=== PATIENT | female | born 1990 ===

== ENCOUNTER 2019-11-14 09:48 | Outpatient (CLI) | payer OTHER ==
[~2019-11-14] VITALS: Ht 160 cm; Wt 124.1 kg
[2019-11-14 09:59] VITALS: BP 121/56
[2019-11-14 10:52] LABS: ALANINE AMINOTRANSFERASE 38 U/L (12-78); ALBUMIN 2.6 g/dL (3.4-5.0); ANION GAP 9 mmol/L (5-15); CALCIUM 8.7 mg/dL (8.5-10.1); CHLORIDE 109 mmol/L (98-107); CREATININE 0.59 mg/dL (0.55-1.02)
[2019-11-14 10:53] LABS: ALKALINE PHOSPHATASE 113 U/L (45-117); BILIRUBIN,TOTAL 0.3 mg/dL (0.2-1.0); TOTAL PROTEIN 7.3 g/dL (6.4-8.2)
== END 2019-11-14 12:03 | disposition home or self-care (01) ==
LOC: LDOP 09:48
PROVIDERS: ATTEND Obstetrics & Gynecology
DX: Z34.83 Encounter for supervision of other normal pregnancy, third trimester (principal); Z3A.36 36 weeks gestation of pregnancy
CPT/HCPCS: 36415; 59025; 80053; 82239

== ENCOUNTER 2019-11-24 05:10 | Inpatient (IN) | payer OTHER ==
[~2019-11-24] VITALS: Ht 160 cm; Wt 121.0 kg
[2019-11-24 05:16] VITALS: BP 133/63
[2019-11-24] MEDS ORDERED: NEWBORN KIT ONE (05:22)
[2019-11-24] MEDS ORDERED: OXYTOCIN 30U/ 0.9% NaCL 500ML 500 ML ONE ×2 (05:22→09:26)
[2019-11-24] MEDS ORDERED: METOCLOPRAMIDE 5 MG/ML, 2ML ONE (05:23)
[2019-11-24] MEDS ORDERED: SODIUM CITRATE/CITRIC ACID 30 ML UDC PO ONE (05:30)
[2019-11-24] MEDS ORDERED: METOCLOPRAMIDE 5 MG/ML, 2ML IV ONE (05:30)
[2019-11-24] MEDS ORDERED: LACTATED RINGERS 1,000 ML IVBOLUS ONE (05:30)
[2019-11-24] MEDS ORDERED: LACTATED RINGERS 1,000 ML IV SCH (06:00)
[2019-11-24 06:11] LABS: BASOPHILS % (AUTO) 1 % (0-1); EOSINOPHILS % (AUTO) 2 % (1-7); LYMPHOCYTES % (AUTO) 30 % (22-44); MEAN CORPUSCULAR HEMOGLOBIN 28.1 pg (27.0-34.8); MEAN CORPUSCULAR HGB CONC 32.6 g/dL (32.4-35.8); MEAN PLATELET VOLUME 8.8 fL (7.4-10.4); MONOCYTES % (AUTO) 6 % (2-9); NEUTROPHILS % (AUTO) 62 % (42-75); PLATELET COUNT 273 x10^3/uL (130-400); RED CELL DISTRIBUTION WIDTH 15.5 % (9.6-15.2)
[2019-11-24 06:23] LABS: MD NO
[2019-11-24 06:54] LABS: ALANINE AMINOTRANSFERASE 27 U/L (12-78); ALBUMIN 2.7 g/dL (3.4-5.0); ANION GAP 10 mmol/L (5-15); CALCIUM 8.6 mg/dL (8.5-10.1); CHLORIDE 109 mmol/L (98-107); CREATININE 0.54 mg/dL (0.55-1.02)
[2019-11-24 06:56] LABS: ALKALINE PHOSPHATASE 97 U/L (45-117); BILIRUBIN,TOTAL 0.3 mg/dL (0.2-1.0); TOTAL PROTEIN 6.3 g/dL (6.4-8.2)
[2019-11-24] MEDS ORDERED: CEFAZOLIN 1,000 MG ONE ×2 (07:23→08:41)
[2019-11-24] MEDS ORDERED: FENTANYL PF 100 MCG/2ML ONE (07:23)
[2019-11-24] MEDS ORDERED: OXYTOCIN 10 UNITS/ML, 1ML ONE (07:23)
[2019-11-24] MEDS ORDERED: HYDROmorphone 2 MG/ML, 1ML ONE (07:23)
[2019-11-24] MEDS ORDERED: ONDANSETRON 2MG/ML, 2ML ONE (07:23)
[2019-11-24] MEDS ORDERED: SODIUM CHLORIDE 0.9% PF 10ML ONE ×2 (07:25)
[2019-11-24] MEDS: PRENATAL VIT/IRON/FA 1 EACH TABLET PO SCH (09:00)
[2019-11-24] MEDS: LACTATED RINGERS 1,000 ML IV SCH ×5 (09:00→23:48)
[2019-11-24] MEDS ORDERED: SIMETHICONE 80 MG CHEW TAB PO PRN (09:00)
[2019-11-24] MEDS ORDERED: DEXAMETHASONE 4 MG/ML, 1ML IVPush STA (09:30)
[2019-11-24] MEDS: OXYTOCIN 30U/ 0.9% NaCL 500ML 500 ML IV SCH ×2 (09:36→19:00)
[2019-11-24] MEDS ORDERED: OXYcodone 5 MG/5 ML ORAL.SOL UDC ONE (11:03)
[2019-11-24] MEDS ORDERED: OXYcodone 5 MG/5 ML ORAL.SOL UDC PO PRN (11:30)
[2019-11-24 11:45] VITALS: BP 104/63
[2019-11-24] MEDS: KETOROLAC 30 MG/1 ML IVPush SCH ×2 (13:03→19:27)
[2019-11-24] MEDS: ACETAMINOPHEN 500 MG TABLET PO SCH ×2 (13:03→19:27)
[2019-11-24] MEDS: OXYcodone IR 5MG TABLET PO PRN ×3 (14:31→23:50)
[2019-11-24 16:00] VITALS: BP 110/70
[2019-11-24 16:23] LABS: BASOPHILS % (AUTO) 1 % (0-1); EOSINOPHILS % (AUTO) 0 % (1-7); LYMPHOCYTES % (AUTO) 11 % (22-44); MEAN CORPUSCULAR HGB CONC 32.3 g/dL (32.4-35.8); MONOCYTES % (AUTO) 2 % (2-9); NEUTROPHILS % (AUTO) 86 % (42-75); PLATELET COUNT 318 x10^3/uL (130-400); RED CELL DISTRIBUTION WIDTH 15.3 % (9.6-15.2)
[2019-11-24 16:28] LABS: MD NO
[2019-11-24] MEDS: DOCUSATE 100 MG CAPSULE PO PRN (19:27)
[2019-11-24 20:06] VITALS: BP 103/65
[2019-11-24 23:51] VITALS: BP 101/63
[2019-11-25] MEDS: ACETAMINOPHEN 500 MG TABLET PO SCH ×4 (01:04→19:07)
[2019-11-25] MEDS: KETOROLAC 30 MG/1 ML IVPush SCH ×4 (01:04→19:07)
[2019-11-25] MEDS: OXYcodone IR 5MG TABLET PO PRN ×3 (04:19→19:08)
[2019-11-25 04:20] VITALS: BP 102/64
[2019-11-25] MEDS: LACTATED RINGERS 1,000 ML IV SCH ×4 (04:53→17:00)
[2019-11-25] MEDS: OXYTOCIN 30U/ 0.9% NaCL 500ML 500 ML IV SCH ×2 (04:54→15:00)
[2019-11-25 07:54] VITALS: BP 108/73
[2019-11-25] MEDS: PRENATAL VIT/IRON/FA 1 EACH TABLET PO SCH (07:55)
[2019-11-25] MEDS: DOCUSATE 100 MG CAPSULE PO PRN (19:08)
[2019-11-25 20:04] VITALS: BP 127/79
[2019-11-26] MEDS: OXYTOCIN 30U/ 0.9% NaCL 500ML 500 ML IV SCH ×2 (00:07→11:00)
[2019-11-26] MEDS: LACTATED RINGERS 1,000 ML IV SCH ×4 (00:07→11:00)
[2019-11-26] MEDS: KETOROLAC 30 MG/1 ML IVPush SCH ×2 (01:16→08:29)
[2019-11-26] MEDS: ACETAMINOPHEN 500 MG TABLET PO SCH ×3 (01:17→14:26)
[2019-11-26 08:00] VITALS: BP 117/85
[2019-11-26] MEDS: DOCUSATE 100 MG CAPSULE PO PRN (08:29)
[2019-11-26] MEDS: PRENATAL VIT/IRON/FA 1 EACH TABLET PO SCH (08:29)
[2019-11-26] MEDS ORDERED: DOCU-131 PO (11:03)
[2019-11-26] MEDS ORDERED: IBUP200T49 PO (11:04)
[2019-11-26] MEDS ORDERED: OXYC-302 PO (11:20)
[2019-11-26] MEDS ORDERED: ACET650S21 PO (11:35)
== END 2019-11-26 15:16 | disposition home or self-care (01) | DRG 787 ==
LOC: LDIP 05:10 → 2NW 11:25
PROVIDERS: ADMIT Obstetrics & Gynecology; ATTEND Obstetrics & Gynecology
PROC: 10D00Z1 Extraction of Products of Conception, Low, Open Approach (ICD-10-PCS; principal; 2019-11-24)
DX: O34.211 Maternal care for low transverse scar from previous cesarean delivery (principal); O99.354 Diseases of the nervous system complicating childbirth; O99.214 Obesity complicating childbirth; E66.01 Morbid (severe) obesity due to excess calories; Z20.828 Contact with and (suspected) exposure to other viral communicable diseases; G43.909 Migraine, unspecified, not intractable, without status migrainosus; Z3A.37 37 weeks gestation of pregnancy; Z37.0 Single live birth; Z88.0 Allergy status to penicillin
CPT/HCPCS: 36415; 80053; 85025; 86592; 86850; 86900; 87635; G0378; J0690; J1100; J1170; J1885; J2405; J3010; J2590; J2765; J7120